=== PATIENT | female | born 1935 | race American Indian/Alaskan Native ===

== ENCOUNTER 2018-05-05 14:42 | Emergency (ER) | payer MEDICARE ==
[2018-05-05 15:23] VITALS: BMI 22.8
--- NOTE | 2018-05-05 15:55 | C.PDOC ---
History Of Present Illness 83 y/o female brought in to the ED for evaluation of right hip pain over the last 3 months. Pain worsens when walking. Otherwise she denies any fall. Patient did sustain a superficial contusion to the right knee weeks ago. She denies any numbness, tingling, or inability to ambulate. No open wounds. Time Seen by Provider: 05/05/18 15:42 Chief Complaint (Nursing): Lower Extremity Problem/Injury History Per: Patient History/Exam Limitations: no limitations Onset/Duration Of Symptoms: Days Current Symptoms Are (Timing): Still Present Past Medical History Reviewed: Historical Data, Nursing Documentation, Vital Signs Vital Signs: Last Vital Signs Temp 97.4 F L 05/05/18 15:07 Pulse 111 H 05/05/18 15:20 Resp 17 05/05/18 15:20 BP 231/103 H 05/05/18 15:07 Pulse Ox 98 05/05/18 15:20 - Medical History PMH: Diabetes, HTN Denies: Chronic Kidney Disease - [facility] APPLICATION OF SPLINT (10/24/13) Family History: States: Unknown Family Hx - Social History Hx Tobacco Use: No Hx Alcohol Use: No Hx Substance Use: No - Immunization History Hx Tetanus Toxoid Vaccination: No Hx Influenza Vaccination: No Hx Pneumococcal Vaccination: No Review Of Systems Except As Marked, All Systems Reviewed And Found Negative. Constitutional: Negative for: Fever Cardiovascular: Negative for: Chest Pain Respiratory: Negative for: Shortness of Breath Musculoskeletal: Positive for: Leg Pain (right hip pain) Skin: Negative for: Rash, Lesions Neurological: Negative for: Weakness, Numbness, Incoordination Physical Exam - Physical Exam Appears: Non-toxic, No Acute Distress, Other (elderly black female) Skin: Warm, Dry Head: Atraumatic, Normacephalic Eye(s): bilateral: Normal Inspection, PERRL, EOMI Oral Mucosa: Moist Neck: Normal ROM Chest: Symmetrical Cardiovascular: Rhythm Regular Respiratory: No Rales, No Rhonchi, No Wheezing Gastrointestinal/Abdominal: Soft, No Tenderness, No Distention Extremity: No Calf Tenderness, Capillary Refill (less than 2 sec), No Deformity, No Swelling, Other (no pain to rotation of right hip) Pulses: Left Dorsalis Pedis: Normal, Right Dorsalis Pedis: Normal Neurological/Psych: Oriented x3 ED Course And Treatment O2 Sat by Pulse Oximetry: 98 (on RA) Pulse Ox Interpretation: Normal - Other Rad R hip X-Ray: Interpreted by Me (neg) Medical Decision Making Medical Decision Making: hip/buttock strain/sprain normal R hip films LOW susp of DVT/arterial insuff NSAIDS/ice educated. Disposition Doctor Will See Patient In The: Office Counseled Patient/Family Regarding: Studies Performed, Diagnosis - Disposition Referrals: Gianni Davalos MD [Staff Provider] - Disposition: HOME/ ROUTINE Disposition Time: 16:48 Condition: GOOD Additional Instructions: Normal R hip x-rays. continue motrin 400 mg every 6 hours as needed for R hip pain ice packs to R buttock/hip area 1/2 hour per hour, no heat therapies Follow-up with Dr. Davalos to consider further eval Instructions: Hip Pain in Older People Forms: [facility] (Yi) - Clinical Impression Clinical Impression: Right hip pain - Scribe Statement The provider has reviewed the documentation as recorded by the Riassaibadrienne Mcadams Provider Attestation: All medical record entries made by the Raissaibadrienne were at my direction and personally dictated by me. I have reviewed the chart and agree that the record accurately reflects my personal performance of the history, physical exam, medical decision making, and the department course for this patient. I have also personally directed, reviewed, and agree with the discharge instructions and disposition.
--- NOTE | 2018-05-05 16:46 | RAD ---
Date of service: 05/05/2018 PROCEDURE: HISTORY: R hip pain w amb x 3 months COMPARISON: None TECHNIQUE: AP pelvis and frog's leg view. FINDINGS: Relative increased bone mineralization nonspecific L3-L4 and L5 with endplate spondylosis and disc space narrowing most notable at L4-5. Marginal osteophytosis most pronounced on the right sided L4-5. Minimal sclerotic SI joint arthrosis. Pubic symphysis unremarkable. Bilateral superolateral hip joint space narrowing. No fracture or dislocation appreciated. Popcorn like calcifications left hemipelvis compatible with calcified degenerating uterine fibroids. Left and right stool retention. IMPRESSION: No fracture or dislocation. Degenerative changes multifocal as detailed above. Findings affect both hips fairly symmetrical. Findings affect the L4-5 level asymmetric towards the right.
[2018-05-05 18:30] VITALS: BP 188/72; PULSE 77; RESP 15; TEMP 98.2; O2SAT 97
== END 2018-05-05 19:05 | disposition home or self-care (01) ==
LOC: C.ER 14:42
DX: M25.551 Pain in right hip (principal); E11.9 Type 2 diabetes mellitus without complications; I10 Essential (primary) hypertension